=== PATIENT | male | born 1990 | race Caucasian/White ===

== ENCOUNTER 2021-08-03 15:33 | Emergency (ER) | payer SELFPAY ==
[~2021-08-03] VITALS: Ht 170.2 cm; Wt 98.9 kg
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
[2021-08-03] MEDS ORDERED: TDAP [DIPH/PERTUSSIS/TET] 0.5 ML VIAL IM ONE ×2 (16:00→16:13)
[2021-08-03] MEDS ORDERED: HYDROCODONE/APAP 5/325MG TABLET PO ONE (16:00)
[2021-08-03] MEDS ORDERED: HYDROCODONE/APAP 5/325MG TABLET ONE (16:12)
[2021-08-03] MEDS ORDERED: LIDOCAINE 2% 20 ML MDV ONE (16:36)
[2021-08-03] MEDS ORDERED: LIDOCAINE HCL/PF 1% 30 ML VIAL TP ONE (17:00)
[2021-08-03] MEDS ORDERED: IBUP-1955 PO (17:54)
--- NOTE | 2021-08-03 18:11 | NUR ---
Patient discharged to home in stable condition. Written and verbal after care instructions given. Patient verbalizes understanding of instruction but refused to sign discharge papers despite explaining risks and benefits.
[2021-08-03 18:12] VITALS: BP 131/84
== END 2021-08-03 18:12 | disposition home or self-care (01) ==
LOC: ER 15:37
DX: S81.012A Laceration without foreign body, left knee, initial encounter (principal); S00.03XA Contusion of scalp, initial encounter; V49.49XA Driver injured in collision with other motor vehicles in traffic accident, initial encounter; Y93.89 Activity, other specified; Y92.89 Other specified places as the place of occurrence of the external cause; Y99.8 Other external cause status
CPT/HCPCS: 12002; 70450; 70486; 72125; 73564; 73590; 90471; 90715; 99284; A6403; J3490 ×2